=== PATIENT | male | born 2000 | race Caucasian/White ===

== ENCOUNTER 2019-06-25 11:37 | Emergency (ER) | payer OTHER, BC ==
[2019-06-25 11:46] VITALS: BP 137/70
[2019-06-25] MEDS ORDERED: DIPH/PERTUSS(ACELL)/TETANUS VAC/PF 0.5 ML SYR (>=10YO) IM ONE (11:52)
--- NOTE | 2019-06-25 11:58 | ER Document Report ---
HPI - HPI Time Seen by Provider: 06/25/19 11:49 Pain Level: 2 Notes: 19-year-old male presents emergency room for evaluation of his left foot after he stepped onto a nail x1 day ago while wearing his shoes. Unknown when his last tetanus was. pain is 3/10, achy. no otc meds have been tried. able to partial weight. no other area of injury. Patient states he cleaned it out with peroxide and water. Denies fevers, chills, chest pain,palpitations, shortness of breath, dyspnea, nausea, vomiting, diarrhea, abdominal pain, hbowel or bladder dysfunction, saddle anesthesia, numbness or tingling in bilateral upper or lower extremities equally, muscle paralysis, weakness in bilateral upper or lower extremities equally or rash. - MUSCULOSKELETAL Musculoskeletal: REPORTS: Extremity pain Past Medical History - General Information source: Patient - Social History Smoking Status: Current Every Day Smoker Chew tobacco use (# tins/day): No Frequency of alcohol use: Social Drug Abuse: Marijuana Family History: Reviewed & Not Pertinent Patient has suicidal ideation: No Patient has homicidal ideation: No Vertical Provider Document - CONSTITUTIONAL Agree With Documented VS: Yes Exam Limitations: No Limitations General Appearance: WD/WN Notes: PHYSICAL EXAMINATION:reviewed vital signs by RN GENERAL: Well-appearing, well-nourished and in no acute distress. HEAD: Atraumatic, normocephalic. EYES: Pupils equal round and reactive to light, extraocular movements intact, sclera anicteric, conjunctiva are normal. ENT: Nares patent, oropharynx clear without exudates. Moist mucous membranes. NECK: Normal range of motion, supple without lymphadenopathy LUNGS: Breath sounds clear to auscultation bilaterally and equal. No wheezes rales or rhonchi. HEART: Regular rate and rhythm without murmurs ABDOMEN: Soft, nontender, nondistended abdomen. No guarding, no rebound. No masses appreciated. Musculoskeletal: Normal range of motion, no pitting or edema. No cyanosis. NEUROLOGICAL: Cranial nerves grossly intact. Normal speech, normal gait. Normal sensory, motor exams PSYCH: Normal mood, normal affect. SKIN: Warm, Dry, normal turgor, no rashes or lesions noted. Puncture wound to ball of the foot, no surrounding erythema induration warmth to touch. Unable to palpate a step-off. No open lesions. squeeze test negative. dtr +2 BLE. Limited APROM. distal pulses + 2 in BUE. full motor and sensory function. No vascular compromise. Ankle exam within normal limits. no surrounding erythema, induration of warmth to touch Course - Re-evaluation Re-evalutation: 06/25/19 12:04 Afebrile vital stable no distress. Nurses notes reviewed. xray of foot negative for any fracture or retained foreign body. Foot soaked in warm water and Shur-Clens, high-pressure irrigation with at least 100 mL's of normal saline. Discussed with patient that he needs to wash with soap and water at least twice daily, monitor for any signs symptoms of infection such as redness, swelling, drainage. Patient was given a tetanus immunization today's to bring them up today. Will start patient on ciprofloxacin to prevent any Pseudomonas since he was wearing a shoe when he stepped on a nail. patient is also being discharged home on crutches so he does not bear full weight on the bottom of his foot. Advised to follow-up with cheese specialist and primary care provider for further evaluation as needed. After performing a Medical Screening Examination, I estimate there is LOW risk for OPEN FRACTURE, COMPARTMENT SYNDROME, TENDON RUPTURE, ACUTE NEUROVASCULAR INJURY, or RETAINED FOREIGN BODY, thus I consider the discharge disposition reasonable. Also, there is no evidence or peritonitis, sepsis, or toxicity. I have reevaluated this patient multiple times and no significant life threatening changes are noted. The patient and I have discussed the diagnosis and risks, and we agree with discharging home with close follow-up with the understanding that symptoms and presentations can change. We also discussed returning to the Emergency Department immediately if new or worsening symptoms occur. We have discussed the symptoms which are most concerning (e.g., changing or worsening pain, fever, numbness, weakness, cool or painful digits) that necessitate immediate return. 06/25/19 12:46 - Vital Signs Vital signs: Temp Pulse Resp BP Pulse Ox 98.1 F 85 16 137/70 H 98 06/25/19 11:45 06/25/19 11:45 06/25/19 11:45 06/25/19 11:45 06/25/19 11:45 Discharge - Discharge Clinical Impression: Puncture wound of left foot Condition: Stable Disposition: HOME, SELF-CARE Instructions: Use of Crutches ([facility]), Puncture Wound ([facility]), Tetanus Immunization Given ([facility]) Additional Instructions: Puncture Wound You have a puncture wound. Because these wounds often penetrate deeply beneath the skin, you must observe them carefully for complications. The wound has been examined for retained foreign material and for damage to tendons and nerves. The area should be rested and elevated for 24 hours. Then you can use the injured part -- if moving it is painfree. Punctures of the hand or foot may require splinting or crutches. The dressing should be changed daily until the wound is healed. Watch for signs of infection. Call the doctor immediately if redness, swelling, warmth, increasing pain, or wound drainage occur. If you develop numbness, persistent bleeding, or inability to move the injured area, please return for prompt re-evaluation. Return immediately for any new or worsening symptoms. Follow up with primary care provider, call tomorrow to make followup appointment. Prescriptions: Ciprofloxacin HCl [Cipro 500 mg Tablet] 500 mg PO BID #20 tablet Naproxen 500 mg PO BID #10 tablet Forms: Return to Work Referrals: KANNAN DE OLIVEIRA MD [ACTIVE STAFF] - Follow up as needed ALISHA BILLINGSLEY JR, DO [ACTIVE PROVISIONAL STAFF] - Follow up as needed
--- NOTE | 2019-06-25 12:24 | RADIOLOGY REPORT (SQ) ---
EXAM DESCRIPTION: FOOT LEFT 2 VIEWS IMAGES COMPLETED DATE/TIME: 06/25/2019 12:01 pm REASON FOR STUDY: stepped on a nail, r/o fb COMPARISON: None. NUMBER OF VIEWS: Two views. TECHNIQUE: AP and lateral radiographic images acquired of the left foot. LIMITATIONS: None. FINDINGS: MINERALIZATION: Normal. BONES: No acute fracture or dislocation. No gross bone puncture wound. No worrisome bone lesions. JOINTS: No effusions. SOFT TISSUES: No soft tissue swelling. No radiopaque foreign body. OTHER: No other significant finding. IMPRESSION: No retained radiopaque foreign body or fracture. TECHNICAL DOCUMENTATION: JOB ID: [id number] 2010 [employer]- All Rights Reserved Reading location - IP/workstation name: [id number]
== END 2019-06-25 12:51 | disposition home or self-care (01) ==
LOC: ER 11:37
DX: S91.332A Puncture wound without foreign body, left foot, initial encounter (principal); W45.0XXA Nail entering through skin, initial encounter; Y93.89 Activity, other specified; F17.200 Nicotine dependence, unspecified, uncomplicated; F12.10 Cannabis abuse, uncomplicated; Z23 Encounter for immunization
CPT/HCPCS: 90471; 90715; 99283